=== PATIENT | female | born 1990 | race Caucasian/White ===

== ENCOUNTER 2019-10-29 21:11 | Emergency (ER) | payer BC ==
[~2019-10-29] VITALS: Ht 170.2 cm; Wt 77.1 kg
[2019-10-29 21:18] VITALS: BP 144/94
[2019-10-29] MEDS ORDERED: CLARITIN10 MG PO (21:21)
[2019-10-29] MEDS ORDERED: PEPCID20 MG PO (21:22)
[2019-10-29] MEDS ORDERED: HYDROXYZINE HCL50 MG PO (21:23)
[2019-10-29] MEDS ORDERED: NORCO 5-325 TA1 EAC1 PO (21:46)
[2019-10-29] MEDS ORDERED: FLEXERIL PO (21:46)
== END 2019-10-29 21:50 | disposition home or self-care (01) ==
LOC: M.ERS 21:11
DX: S39.012A Strain of muscle, fascia and tendon of lower back, initial encounter (principal); S66.812A Strain of other specified muscles, fascia and tendons at wrist and hand level, left hand, initial encounter; V89.2XXA Person injured in unspecified motor-vehicle accident, traffic, initial encounter; Y93.89 Activity, other specified; Y92.89 Other specified places as the place of occurrence of the external cause; Y99.8 Other external cause status